=== PATIENT | male | born 1960 | race Caucasian/White ===

== ENCOUNTER 2018-10-22 00:30 | Emergency (ER) | payer OTHER ==
[2018-10-22 00:45] VITALS: BP 145/84
--- NOTE | 2018-10-22 01:09 | EDM.PDOC ---
ED HPI GENERAL MEDICAL PROBLEM - General Chief Complaint: Flank Pain Stated Complaint: KIDNEY STONE Time Seen by Provider: 10/22/18 01:04 Source of Information: Reports: Patient History Limitations: Reports: No Limitations - History of Present Illness INITIAL COMMENTS - FREE TEXT/NARRATIVE: 58-year-old male with a history of kidney stones, developed very sudden onset of right flank pain and right lower abdominal pain 4 hours ago. He also developed some nausea. No fevers or chills or urinary symptoms. It feels very similar to his past kidney stones. He took 2 oxycodone which she had left over from his last kidney stone and he feels better but is still having discomfort. Onset: Sudden Duration: Hour(s): (4 hours) Location: Reports: Back (Right flank) Right Abdomen Pain Score (Numeric/FACES): 8 - Related Data Allergies Allergy/AdvReac Type Severity Reaction Status Date / Time No Known Allergies Allergy Verified 10/22/18 00:43 Home Meds: Home Meds NK [No Known Home Meds] 04/06/14 [History] Past Medical History HEENT History: Reports: Hard of Hearing Genitourinary History: Reports: Renal Calculus Other Genitourinary History: kidney stones twice Neurological History: Reports: Concussion - Infectious Disease History Infectious Disease History: Reports: Chicken Pox, Shingles Other Infectious Disease History: lymes - Past Surgical History Musculoskeletal Surgical History: Reports: Arthroscopic Knee Other Musculoskeletal Surgeries/Procedures:: torn achilles tendon operation Social & Family History - Family History Family Medical History: Noncontributory - Tobacco Use Smoking Status *Q: Never Smoker - Caffeine Use Caffeine Use: Reports: None - Recreational Drug Use Recreational Drug Use: No - Living Situation & Occupation Living situation: Reports: with Significant Other ED ROS GENERAL - Review of Systems Review Of Systems: See Below Constitutional: Denies: Fever, Chills HEENT: Reports: No Symptoms Respiratory: Reports: No Symptoms Cardiovascular: Reports: No Symptoms GI/Abdominal: Reports: Abdominal Pain (Mild abdominal pain on the right side), Nausea. Denies: Vomiting : Reports: Flank Pain Musculoskeletal: Reports: No Symptoms Skin: Reports: No Symptoms Neurological: Reports: No Symptoms ED EXAM, GENERAL - Physical Exam Exam: See Below Exam Limited By: No Limitations General Appearance: Alert, No Apparent Distress, Other (No distress but looks uncomfortable at this time) Respiratory/Chest: No Respiratory Distress, Lungs Clear Cardiovascular: Regular Rate, Rhythm GI/Abdominal: Soft, Other (Vague tenderness along the right abdomen but no guarding or rebound) Neurological: Alert, Oriented Psychiatric: Normal Affect, Normal Mood Skin Exam: Warm, Dry Course - Vital Signs Last Recorded V/S: Last Vital Signs Temp 96.0 F 10/22/18 00:44 Pulse 54 L 10/22/18 00:44 Resp 16 10/22/18 00:44 BP 145/84 H 10/22/18 00:44 Pulse Ox 98 10/22/18 00:44 - Re-Assessments/Exams Free Text/Narrative Re-Assessment/Exam: 10/22/18 01:11 CT the abdomen and pelvis without contrast was ordered. 10/22/18 01:54 1. There is a 7 mm stone present in the mid right ureter causing mild proximal hydroureter and right renal pelvicaliectasis. 2. The transverse colon is collapsed but there is suspected wall thickening near the hepatic flexure to the mid transverse colon. Correlation with recent colonoscopy or barium enema study recommended. Patient was feeling much better after the CT scan. He'll be discharged with 20 doses of ketorolac that he can take every 6 hours along with his oxycodone, and will return in 2-3 days if not improving, sooner if worsening. Departure - Departure Time of Disposition: 02:21 Disposition: Home, Self-Care 01 Condition: Fair Clinical Impression: Kidney stone - Discharge Information Instructions: Kidney Stones, [id number] Referrals: Mari Mistry MD [Primary Care Provider] - Forms: ED Department Discharge Care Plan Goals: Use pain medicine as directed. Recheck in 2-3 days if not improving satisfactorily, or return sooner if worsening such as persistent vomiting or uncontrolled pain. Also recheck if you develop a fever.
--- NOTE | 2018-10-22 01:42 | CRLCT ---
INDICATION: Right flank pain TECHNIQUE: CT Abdomen and pelvis without i.v. contrast. Coronal and sagittal reformats were obtained. COMPARISON: None FINDINGS: Lower chest: Unremarkable. Liver: Unremarkable. Spleen: There is a 1.5 cm hypodense lesion in the posterior spleen, incompletely assessed without intravenous contrast. Pancreas: Unremarkable. Gallbladder: Unremarkable. Kidney: There is a 7 mm stone present in the mid right ureter causing mild proximal hydroureter and right renal pelvicaliectasis. A 1 mm stone is present in the lower pole of the right kidney. The left kidney and ureter are unremarkable in appearance. Adrenal: Unremarkable. Bowel: The transverse colon is collapsed but there is suspected wall thickening near the hepatic flexure to the mid transverse colon. The appendix is normal in appearance and size. Vascular: Unremarkable. Lymph: Unremarkable. Peritoneum: Unremarkable. No pneumoperitoneum is seen. No significant ascites is noted. Pelvis: Mild enlargement of the prostate gland is seen. Soft tissue: Unremarkable. Bone: Unremarkable for age. IMPRESSIONS: 1. There is a 7 mm stone present in the mid right ureter causing mild proximal hydroureter and right renal pelvicaliectasis. 2. The transverse colon is collapsed but there is suspected wall thickening near the hepatic flexure to the mid transverse colon. Correlation with recent colonoscopy or barium enema study recommended. Dictated by Daniel Rivas MD @ 10/22/2018 1:40:58 AM Please note that all CT scans at this facility use dose modulation, iterative reconstruction, and/or weight-based dosing when appropriate to reduce radiation dose to as low as reasonably achievable. Dictated by: Daniel Rivas MD @ 10/22/2018 01:41:02 (Electronically Signed)
== END 2018-10-22 02:22 | disposition home or self-care (01) ==
LOC: JP.ED 00:30
DX: N20.0 Calculus of kidney (principal); N13.4 Hydroureter
CPT/HCPCS: 74176; 99284-25

== ENCOUNTER 2021-04-22 16:23 | Emergency (ER) | payer OTHER ==
[2021-04-22 16:45] VITALS: BP 112/76; PULSE 78
--- NOTE | 2021-04-22 16:45 | EDM.PDOC ---
ED HPI GENERAL MEDICAL PROBLEM - General Chief Complaint: Respiratory Problem Stated Complaint: COVID SYMPTOMS Time Seen by Provider: 04/22/21 16:29 Source of Information: Reports: Patient History Limitations: Reports: No Limitations - History of Present Illness INITIAL COMMENTS - FREE TEXT/NARRATIVE: 60-year-old male has been sick with a cough, fever, body aches and headache for the past week. He did not get Covid vaccinated. No sore throat or runny nose. No diarrhea. He has lost his taste sensation. He is a non-smoker. He is otherwise very healthy for his age, runs regularly and takes no medications. Symptoms started with shaking chills 8 nights ago. Onset: Gradual Location: Reports: Other (Not complaining of any pain) Associated Symptoms: Reports: Cough, Fever/Chills, Malaise, Shortness of Breath, Weakness. Denies: Nausea/Vomiting - Related Data Allergies Allergy/AdvReac Type Severity Reaction Status Date / Time No Known Allergies Allergy Verified 10/22/18 00:43 Home Meds: Home Meds NK [No Known Home Meds] 04/06/14 [History] Past Medical History HEENT History: Reports: Hard of Hearing, Other (See Below) Other HEENT History: tinitis Respiratory History: Reports: Other (See Below) Other Respiratory History: october 2019 respiratory virus Gastrointestinal History: Reports: Cholelithiasis Genitourinary History: Reports: Renal Calculus Other Genitourinary History: kidney stones twice Neurological History: Reports: Concussion Oncologic (Cancer) History: Reports: Squamous Cell Carcinoma - Infectious Disease History Infectious Disease History: Reports: Chicken Pox, Shingles Other Infectious Disease History: lymes - Past Surgical History Musculoskeletal Surgical History: Reports: Arthroscopic Knee Other Musculoskeletal Surgeries/Procedures:: torn achilles tendon operation Social & Family History - Family History Family Medical History: No Pertinent Family History - Tobacco Use Tobacco Use Status *Q: Never Tobacco User Second Hand Smoke Exposure: No - Caffeine Use Caffeine Use: Reports: None - Recreational Drug Use Recreational Drug Use: No - Living Situation & Occupation Living situation: Reports: with Significant Other ED ROS GENERAL - Review of Systems Review Of Systems: See Below Constitutional: Reports: Fever, Chills, Malaise HEENT: Reports: Other (Loss of sensation of taste). Denies: Ear Pain, Throat Pain Respiratory: Reports: Shortness of Breath, Cough. Denies: Sputum Cardiovascular: Denies: Chest Pain GI/Abdominal: Reports: Decreased Appetite. Denies: Abdominal Pain, Nausea, Vomiting Skin: Reports: No Symptoms Neurological: Reports: Headache, Weakness Psychiatric: Reports: No Symptoms ED EXAM, GENERAL - Physical Exam Exam: See Below Exam Limited By: No Limitations General Appearance: Alert, No Apparent Distress Ears: Normal TMs Throat/Mouth: Normal Inspection Head: Atraumatic Respiratory/Chest: Rales (Rales are discretely heard in the left base, no wheezing or other abnormal breath sounds. Lungs are otherwise clear.) Cardiovascular: Regular Rate, Rhythm. No: Tachycardia Extremities: Normal Inspection Neurological: Alert, Oriented Psychiatric: Normal Affect, Normal Mood Skin Exam: Warm, Dry Course - Vital Signs Last Recorded V/S: Last Vital Signs Temp 98.1 F 04/22/21 16:44 Pulse 78 04/22/21 16:44 Resp 16 04/22/21 16:44 BP 112/76 04/22/21 16:44 Pulse Ox 94 L 04/22/21 16:44 - Orders/Labs/Meds Orders: Active Orders 24 hr Category Date Time Status Chest 2V [CR] Routine Exams 04/22/21 17:19 Taken Labs: Laboratory Tests 04/22/21 Range/Units 17:03 SARS CoV-2 RNA Rapid ANGUS Positive H - Re-Assessments/Exams Free Text/Narrative Re-Assessment/Exam: 04/22/21 17:22 A Covid test was done, this will be followed by a 2 view chest x-ray. Covid is positive. 04/22/21 18:17 X-ray shows a small infiltrate in the left base, patient will be covered with doxycycline 100 mg twice daily but it is very possible that the changes on the x-ray are due to just his Covid infection. If he starts struggling to breathe and feels he needs help, he will return for reevaluation. Departure - Departure Time of Disposition: 18:39 Disposition: Home, Self-Care 01 Clinical Impression: COVID-19 - Discharge Information Instructions: COVID-19 Referrals: PCP,Unknown [Primary Care Provider] - Forms: ED Department Discharge Care Plan Goals: Stay hydrated, ibuprofen may help with headache or body aches, and take doxycycline twice daily as directed. Increase activity as tolerated or return to the emergency room if you are worsening such as struggling to breathe or you feel you need oxygen. Sepsis Event Note (ED) - Evaluation Sepsis Screening Result: No Definite Risk - Focused Exam Vital Signs: Vital Signs Temp Pulse Resp BP Pulse Ox 04/22/21 16:44 98.1 F 78 16 112/76 94 L 04/22/21 16:33 77 20 135/78 94 L - My Orders Last 24 Hours: My Active Orders 04/22/21 17:19 Chest 2V [CR] Routine - Assessment/Plan Last 24 Hours: My Active Orders 04/22/21 17:19 Chest 2V [CR] Routine
--- NOTE | 2021-04-24 09:59 | CR ---
CHEST: 2 view CLINICAL HISTORY:Dyspnea COMPARISON:None FINDINGS: There is patchy density in both lower lung arvizu. Heart size and pulmonary vascular normal. There are no effusions Impression: Patchy bibasal infiltrates.
== END 2021-04-22 18:40 | disposition home or self-care (01) ==
LOC: JP.ED 16:23
DX: U07.1 COVID-19 (principal)
CPT/HCPCS: 71046; 71046-26; 99283-25; U0002